=== PATIENT | male | born 1970 | race Two or more races ===

== ENCOUNTER 2016-05-17 09:44 | Emergency (ER) | payer BC ==
[~2016-05-17] VITALS: Ht 167.6 cm; Wt 83.9 kg
[2016-05-17] MEDS ORDERED: TdaP Vaccine 0.5ml Syr IM ONE (10:30)
[2016-05-17] MEDS ORDERED: Lidocaine HCl 2% Jelly 5ml Tube TOPIC ONE (10:30)
[2016-05-17] MEDS ORDERED: Bacitracin Oint UD TOPIC ONE ×2 (10:30→13:00)
[2016-05-17 12:30] VITALS: BP 127/60
[2016-05-17] MEDS ORDERED: TRAMADOL HCL50 MG ORAL (12:32)
[2016-05-17] MEDS ORDERED: IBUPROFEN600 MG ORAL (12:32)
[2016-05-17] MEDS ORDERED: BACITRACIN15 GM TOPIC (12:34)
[2016-05-17 12:58] VITALS: BP 127/60
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
== END 2016-05-17 12:58 | disposition home or self-care (01) ==
LOC: EMR 10:57
DX: S80.01XA Contusion of right knee, initial encounter (principal); V19.9XXA Pedal cyclist (driver) (passenger) injured in unspecified traffic accident, initial encounter; Z23 Encounter for immunization
CPT/HCPCS: 90471; 90715; 99284

== ENCOUNTER 2016-12-23 11:14 | Emergency (ER) | payer BC, OTHER ==
[~2016-12-23] VITALS: Ht 167.6 cm; Wt 86.2 kg
[~2016-12-23 11:14] MED LIST: BACITRACIN15 GM TOPIC; IBUPROFEN600 MG ORAL; TRAMADOL HCL50 MG ORAL
[2016-12-23] MEDS ORDERED: Ketorolac 30mg Inj IV ONE (11:45)
[2016-12-23 12:11] LABS: BASOPHILS % (AUTO) 0.7 % (0.0-2.0); EOSINOPHILS % (AUTO) 2.7 % (0.0-3.0); LYMPHOCYTES % (AUTO) 14.9 % (20.0-45.0); MEAN CORPUSCULAR HGB CONC 33.8 G/DL (32.0-36.0); MEAN CORPUSCULAR VOLUME 92 FL (80-99); MEAN PLATELET VOLUME 6.3 FL (6.5-10.1); MONOCYTES % (AUTO) 10.2 % (1.0-10.0); NEUTROPHILS % (AUTO) 71.5 % (45.0-75.0); PLATELET COUNT 193 K/UL (150-450); RED BLOOD COUNT 5.36 M/UL (4.70-6.10); RED CELL DISTRIBUTION WIDTH 11.6 % (11.6-14.8); WHITE BLOOD COUNT 6.9 K/UL (4.8-10.8)
[2016-12-23 12:12] LABS: APPEARANCE,URINE CLEAR; KETONES,URINE NEGATIVE (NEGATIVE); LEUKOCYTE ESTERASE ,URINE NEGATIVE (NEGATIVE); NITRITE,URINE NEGATIVE (NEGATIVE); PH,URINE 5 (4.5-8.0); PROTEIN,URINE 2+ (NEGATIVE); UROBILINOGEN,URINE NORMAL MG/DL (0.0-1.0)
[2016-12-23 12:26] LABS: ALANINE AMINOTRANSFERASE 51 U/L (12-78); ALBUMIN/GLOBULIN RATIO 1.4 (1.0-2.7); ANION GAP 9 mmol/L (5-15); ASPARTATE AMINO TRANSFERASE 19 U/L (15-37); CALCIUM 9.3 MG/DL (8.5-10.1); CARBON DIOXIDE 28 MMOL/L (21-32); CHLORIDE 102 MMOL/L (98-107); CREATININE 0.8 MG/DL (0.55-1.30); GLOMERULAR FILTRATION RATE > 60 mL/min (>60); LIPASE 55 U/L (73-393); POTASSIUM 3.8 MMOL/L (3.5-5.1); SODIUM 139 MMOL/L (136-145); TOTAL PROTEIN 7.2 G/DL (6.4-8.2)
[2016-12-23 12:30] LABS: BACTERIA,URINE FEW /HPF; MUCUS,URINE FEW /LPF (NONE/OCC); SQUAMOUS EPITHELIAL CELL,UR OCCASIONAL /LPF (NONE/OCC); WBC,URINE 0-2 /HPF (0 - 0)
[2016-12-23] MEDS ORDERED: Morphine Sulfate 4mg/ml Inj IVP ONE (14:00)
[2016-12-23] MEDS ORDERED: IBUPROFEN600 MG ORAL (14:11)
[2016-12-23] MEDS ORDERED: CYCLOBENZAPRINE10 MG ORAL (14:11)
--- NOTE | 2016-12-23 14:15 | Diagnostic Imaging Report ---
Indication: Abdominal pain left flank Technique: Continuous helical transaxial imaging of the abdomen and pelvis was obtained from the lung bases to the pubic symphysis. No intravenous contrast was administered. Coronal 2-D reformats were also obtained. Total Dose length Product (DLP): [address] Dose Index Volume (CTDIvol): 2.15, 19.07 mGy Comparison: none Findings: No hydronephrosis or nephrolithiasis identified. No free fluid or free air seen. No evidence of bowel obstruction. Few diverticula are noted in the colon. There is no evidence of acute diverticulitis. Normal appendix noted. Trace calcification of aorta demonstrated. Gallbladder is unremarkable. The lung bases appear clear. Impression: No acute findings. The CT scanner at [facility] is accredited by the [employer] and the scans are performed using dose optimization techniques as appropriate to a performed exam including Automatic Exposure control.
[2016-12-23 14:23] VITALS: BP 128/81
--- NOTE | 2016-12-23 16:06 | Emergency Room Report ---
History of Present Illness General Chief Complaint: Pain Source: Patient Present Illness HPI 46-year-old male presents ED complaining of back pain. Pain started this morning. Pain is left-sided, posterior, 8 at 10, nonradiating. Denies fevers or chills. Denies chest pain shortness of breath. Denies nausea or vomiting. No other aggravating relieving factors. Denies any other associated symptoms Allergies: Coded Allergies: No Known Allergies (Unverified , 05/17/16) Patient History Past Medical History: none Past Surgical History: none Social History: Denies: smoking, alcohol use, drug use Immunizations: UTD Reviewed Nursing Documentation: PMH: Agreed, PSxH: Agreed Nursing Documentation-PMH Past Medical History: No History, Except For Hx Hypertension: No - high cholesterol Review of Systems All Other Systems: negative except mentioned in HPI Physical Exam Vital Signs Date Time Temp Pulse Resp B/P (MAP) Pulse Ox O2 Delivery O2 Flow Rate FiO2 12/23/16 11:23 97.9 76 20 148/79 99 Room Air Sp02 EP Interpretation: reviewed, normal General Appearance: no apparent distress, alert, GCS 15, non-toxic Head: normocephalic Eyes: bilateral eye normal inspection, bilateral eye PERRL ENT: normal ENT inspection Neck: normal inspection Respiratory: normal inspection Cardiovascular #1: normal inspection Gastrointestinal: normal bowel sounds, non tender, soft, non-distended, no guarding, no rebound Rectal: deferred Genitourinary: no CVA tenderness, CVA tenderness (L) Musculoskeletal: normal inspection Neurologic: alert, oriented x3, responsive, motor strength/tone normal, sensory intact, speech normal Psychiatric: normal inspection Skin: normal inspection Lymphatic: normal inspection Medical Decision Making Diagnostic Impression: Primary Impression: Back pain Qualified Codes: M54.5 - Low back pain ER Course Hospital Course 46-year-old M presents to ED with L sided back pain. Differential diagnosis includes- muscle strain, pyelonephritis, kidney stone Clinical course Patient placed on stretcher. After initial history and physical I ordered labs , IV fluids, pain medications and CT scan Labs - no leukocytosis,electrolytes ok, LFTs normal, UA + hematuria CT scan shows no acute pathology Upon reassessment, patient states pain has improved. I discussed findings with patient. Pain is likely muscular or possibly a kidney stone that passed. However management will be the same in pain will be managed I feel this is a highly complex case requiring extensive working including EKG/ Rhythm strip, Xray/CT/US, Blood/urine lab work, repeat exams while in ED, and administration of strong opiates/narcotics for pain control, admission to hospital or close patient follow up. Diagnosis - back pain Stable and discharged to home with Rx Motrin, Flexeril. Followup with PMD. Return to ED if symptoms recur or worsen Labs Test 12/23/16 11:50 White Blood Count 6.9 K/UL (4.8-10.8) Red Blood Count 5.36 M/UL (4.70-6.10) Hemoglobin 16.6 G/DL (14.2-18.0) Hematocrit 49.1 % (42.0-52.0) Mean Corpuscular Volume 92 FL (80-99) Mean Corpuscular Hemoglobin 31.0 PG (27.0-31.0) Mean Corpuscular Hemoglobin Concent 33.8 G/DL (32.0-36.0) Red Cell Distribution Width 11.6 % (11.6-14.8) Platelet Count 193 K/UL (150-450) Mean Platelet Volume 6.3 FL (6.5-10.1) Neutrophils (%) (Auto) 71.5 % (45.0-75.0) Lymphocytes (%) (Auto) 14.9 % (20.0-45.0) Monocytes (%) (Auto) 10.2 % (1.0-10.0) Eosinophils (%) (Auto) 2.7 % (0.0-3.0) Basophils (%) (Auto) 0.7 % (0.0-2.0) Urine Color Yellow Urine Appearance Clear Urine pH 5 (4.5-8.0) Urine Specific [place] 1.025 (1.005-1.035) Urine Protein 2+ (NEGATIVE) Urine Glucose (UA) Negative (NEGATIVE) Urine Ketones Negative (NEGATIVE) Urine Occult Blood 1+ (NEGATIVE) Urine Nitrite Negative (NEGATIVE) Urine Bilirubin Negative (NEGATIVE) Urine Urobilinogen Normal MG/DL (0.0-1.0) Urine Leukocyte Esterase Negative (NEGATIVE) Urine RBC 2-4 /HPF (0 - 0) Urine WBC 0-2 /HPF (0 - 0) Urine Squamous Epithelial Cells Occasional /LPF Urine Bacteria Few /HPF (NONE) Urine Mucus Few /LPF (NONE/OCC) Sodium Level 139 MMOL/L (136-145) Potassium Level 3.8 MMOL/L (3.5-5.1) Chloride Level 102 MMOL/L (98-107) Carbon Dioxide Level 28 MMOL/L (21-32) Anion Gap 9 mmol/L (5-15) Blood Urea Nitrogen 17 mg/dL (7-18) Creatinine 0.8 MG/DL (0.55-1.30) Estimat Glomerular Filtration Rate > 60 mL/min (>60) Glucose Level 127 MG/DL (74-106) Calcium Level 9.3 MG/DL (8.5-10.1) Total Bilirubin 0.9 MG/DL (0.2-1.0) Aspartate Amino Transf (AST/SGOT) 19 U/L (15-37) Alanine Aminotransferase (ALT/SGPT) 51 U/L (12-78) Alkaline Phosphatase 95 U/L (46-116) Total Protein 7.2 G/DL (6.4-8.2) Albumin 4.2 G/DL (3.4-5.0) Globulin 3.0 g/dL Albumin/Globulin Ratio 1.4 (1.0-2.7) Lipase 55 U/L (73-393) CT/MRI/US Diagnostic Results CT/MRI/US Diagnostic Results : Imaging Test Ordered: CT A/P Impression no acute process Last Vital Signs Date Time Temp Pulse Resp B/P (MAP) Pulse Ox O2 Delivery O2 Flow Rate FiO2 12/23/16 14:23 98.0 70 18 128/81 96 Room Air Status: improved Disposition: HOME, SELF-CARE Condition: Stable Scripts Cyclobenzaprine Hcl* (FLEXERIL*) 10 Mg Tablet 10 MG ORAL TID Y for Muscle Spasm, #20 TAB Prov: LENY HOYOS M.D. 12/23/16 Ibuprofen* (MOTRIN*) 600 Mg Tablet 600 MG ORAL Q8H Y for For Pain, #30 TAB 0 Refills Prov: LENY HOYOS M.D. 12/23/16 Patient Instructions: Flank Pain, [id number], Back Pain, Adult, [id number] LENY HOYOS M.D. Dec 23, 2016 16:06
== END 2016-12-23 14:25 | disposition home or self-care (01) ==
LOC: EMR 11:55
DX: M54.9 Dorsalgia, unspecified (principal); R10.9 Unspecified abdominal pain
CPT/HCPCS: 36415; 74176; 80053; 81003; 83690; 85025; 96374; 96375; 99284; J1885; J2270